=== PATIENT | male | born 1940 | race Caucasian/White ===

== ENCOUNTER 2024-12-13 08:13 | Outpatient (CLI) | payer MEDICARE, BC ==
[~2024-12-13] VITALS: Ht 163.8 cm; Wt 88.9 kg
[2024-12-13] MEDS: albuterol 2.5 MG/3 ML nebule NEB ONE (09:12)
[2024-12-13 09:14] VITALS: PULSE 104; RESP 16; O2SAT 95
[2024-12-13 09:26] VITALS: PULSE 100; RESP 16
== END 2024-12-13 23:59 | disposition home or self-care (01) ==
LOC: RT 08:13
PROVIDERS: ATTEND Nurse Practitioner Family
DX: R94.2 Abnormal results of pulmonary function studies (principal); R06.02 Shortness of breath
CPT/HCPCS: 94060; 94760